=== PATIENT | female | born 1965 | race Caucasian/White ===

== ENCOUNTER 2019-03-12 15:28 | Inpatient (IN) | payer OTHER ==
[~2019-03-12] VITALS: Ht 167.6 cm; Wt 92.9 kg
[~2019-03-12 15:28] MED LIST: ALLEGRA ALLERG180 MG PO; CALCIUM 600MG+D1 TAB PO; FISH OIL 1000MG1 CAP PO; JANUMET 1000 MG1 TA1 PO; LANTUS100 U/ML SQ; MULTI VITAMINS1 TAB PO; NOVOLIN R100 U/ML SQ; SINGULAIR 110 MG/TAB PO; ZESTRIL 10MG10 MG PO; ZOCOR 20MG20 MG PO
[2019-04-10] VITALS (7 sets, daily range): BP systolic 121–153; BP diastolic 61–75; PULSE 68–96; TEMP 97.9–98.3
[2019-04-10] MEDS ORDERED: ZOCOR 40MG40 MG PO (09:05)
[2019-04-10] MEDS ORDERED: PROAIR HFA0.09 MG/AC IH (09:06)
[2019-04-10] MEDS ORDERED: FLOVENT 110MCG7.9 GM IH (09:20)
[2019-04-10] MEDS ORDERED: PATANOL OPHTHALM5 ML OD (09:21)
[2019-04-10] MEDS ORDERED: BETIMOL 0.5% OPH5 ML OU (09:21)
[2019-04-11 03:29] VITALS: BP 154/70; PULSE 90; TEMP 99.1
[2019-04-11 07:35] VITALS: BP 149/66; PULSE 65; TEMP 98.4
[2019-04-11 12:12] VITALS: BP 134/61; PULSE 65; TEMP 98.4
[2019-04-11 16:47] VITALS: BP 131/58; PULSE 70; TEMP 98
[2019-04-11] MEDS ORDERED: ULTRAM 50MG TAB50 MG PO (17:35)
[2019-04-11] MEDS ORDERED: ZOFRAN 4MG T4 MG/TAB PO (17:35)
== END 2019-04-11 20:00 | disposition home or self-care (01) | DRG 621 ==
LOC: INPTSU 04-10 08:08 → SURG 04-10 08:08
PROVIDERS: ADMIT Surgery
PROC: 0DB64Z3 Excision of Stomach, Percutaneous Endoscopic Approach, Vertical (ICD-10-PCS; principal; 2019-04-10 10:00)
DX: E66.01 Morbid (severe) obesity due to excess calories (principal); Z68.35 Body mass index [BMI] 35.0-35.9, adult; E11.9 Type 2 diabetes mellitus without complications; J45.909 Unspecified asthma, uncomplicated; E78.5 Hyperlipidemia, unspecified; F32.9 Major depressive disorder, single episode, unspecified; I10 Essential (primary) hypertension; F41.9 Anxiety disorder, unspecified; Z90.49 Acquired absence of other specified parts of digestive tract; Z79.4 Long term (current) use of insulin; Z88.5 Allergy status to narcotic agent; Z91.018 Allergy to other foods; Z91.048 Other nonmedicinal substance allergy status; Z91.09 Other allergy status, other than to drugs and biological substances
CPT/HCPCS: J0690; J1815; J2270; J2405; J2550; J2704; J2710; J7030; J7120

== ENCOUNTER → 2019-10-21 | Outpatient (CLI) | payer OTHER ==
[~2019-10-21] VITALS: Ht 167.6 cm; Wt 76.0 kg
[~2019-10-21] MED LIST changes: +BETIMOL 0.5% OPH5 ML OU; +FLOVENT 110MCG7.9 GM IH; +JANUMET 500 MG-1 TA1 PO; +JARDIANCE25 PO; +PATANOL OPHTHALM5 ML OD; +PROAIR HFA0.09 MG/AC IH; +ULTRAM 50MG TAB50 MG PO; +ZOCOR 40MG40 MG PO; +ZOFRAN 4MG T4 MG/TAB PO
[2019-10-21 15:08] VITALS: BP 116/72; PULSE 76
== END ==
LOC: LIGHT 10-10 09:19
DX: E66.8 Other obesity (principal); Z68.27 Body mass index [BMI] 27.0-27.9, adult; Z98.84 Bariatric surgery status
CPT/HCPCS: G0463

== ENCOUNTER 2021-08-18 07:27 | Day surgery (SDC) | payer OTHER ==
[~2021-08-18] VITALS: Ht 167.6 cm; Wt 72.8 kg
[2021-08-18] MEDS ORDERED: TRULICITY0.75 MG/0. SQ (08:19)
[2021-08-18] MEDS ORDERED: SYNJARDY 12.5-1 EAC1 PO (08:19)
[2021-08-18] MEDS ORDERED: PATADAY5 ML OP (08:23)
[2021-08-18 08:31] VITALS: BP 118/64; PULSE 61; TEMP 97.8
[2021-08-18] MEDS ORDERED: MOTRIN 800800 MG/TAB PO (13:16)
[2021-08-18 14:00] VITALS: BP 136/56; PULSE 100; TEMP 97.6
--- NOTE | 2021-08-18 14:00 | NUR ---
Pt returned via cart to [place] [facility]. Initial set of VS obtained and stable. Pt then assisted to ambulate to bathroom to void. Pt very slow moving and grimacing while guarding abdomen. Able to void without difficulty. After returning to cart in [facility], pt sat on side of bed per request due to discomfort then assisted to lay back onto cart to rest. Pillow used to help with discomfort by pt holding on abdomen with movement. Pt also has abdominal binder in place. Side rails up and spouse present at bedside. Call light placed in reach.
[2021-08-18 14:15] VITALS: BP 116/64; PULSE 94
[2021-08-18 14:30] VITALS: BP 123/51; PULSE 91
--- NOTE | 2021-08-18 14:30 | NUR ---
PT TOLERATING DIET SPRITE AND RESTING.
[2021-08-18 14:45] VITALS: BP 127/59; PULSE 94
--- NOTE | 2021-08-18 14:45 | NUR ---
PT WANTING TO WALK TO HELP WITH HER GAS DISCOMFORT. PT ABLE TO AMBULATE WITHOUT DIFFICULTY. ASSISTING PT.
[2021-08-18 14:58] VITALS: BP 141/74; PULSE 85; TEMP 98.5
--- NOTE | 2021-08-18 16:25 | NUR ---
IV DC'D AT THIS TIME. DISCHARGE EDUCATION COMPLETED WITH PT AND HER . PT AND HER HUBAND VERIFIED UNDERSTANDING OF HOME AND FOLLOW UP CARE. ALL QUESTIONS ANSWERED. DISCHARGE PAPERWORK GIVEN TO PT.
--- NOTE | 2021-08-18 16:40 | NUR ---
PT OF UNIT PER WHEELCHAIR. PT DISCHARGE TO HOME WITH PER PERSONAL VEHICLE.
== END 2021-08-18 16:40 | disposition home or self-care (01) ==
LOC: SDCO 07:27
DX: K43.0 Incisional hernia with obstruction, without gangrene (principal); E11.9 Type 2 diabetes mellitus without complications; R03.0 Elevated blood-pressure reading, without diagnosis of hypertension; Z79.899 Other long term (current) drug therapy; Z79.84 Long term (current) use of oral hypoglycemic drugs; Z90.3 Acquired absence of stomach [part of]
CPT/HCPCS: C1781; J0690; J1100; J2250; J2370; J2405; J2704; J3010; J7120